=== PATIENT | male | born 1955 | race Caucasian/White ===

== ENCOUNTER → 2016-10-11 | Outpatient (CLI) | payer BC ==
[2016-10-11 15:01] LABS: FREE T4 (FREE THYROXINE) 1.16 ng/dL (0.93-1.71)
--- NOTE | 2016-10-13 22:03 | DI ---
CERVICAL SPINE SERIES, 10/11/2016 1:47 PM: Clinical History: Neck pain. Previous Exam: None at this facility. 3 routine upright views are submitted. The vertebral bodies are normal in height and size. There is s evere disc space narrowing from C3-4 through C7-T1 with anterior bony proliferative change at all lev els and posterior proliferative change at C4-5 and C5-6. There is loss of the usual cervical lordosis and this can either be secondary to patient positioning or because of the underlying neck pain. Post erior alignment and lateral masses are otherwise normal. There is degenerative arthritic change bilat erally in the C3-4 and C4-5 uncovertebral joints. C1 articulates normally with C2 and the occiput. Pr evertebral soft tissue planes are normal. Readin. Chronic disc space narrowing from C3-4 through C7-T1 with anterior and posterior bony proliferati ve change at C4-5 and C5-6. 2. Arthritic changes are present in the uncovertebral joints bilaterally at C3-4 and C4-5.
--- NOTE | 2016-10-13 22:26 | DI ---
LUMBAR SPINE SERIES, 10/11/2016 1:48 PM: Clinical History: Sciatica. Previous Exam: None at this facility. Upright AP and lateral and upright coned-down lateral views are submitted. The vertebral bodies are o f normal height and size. There is disc space narrowing at L1-2, L2-3, and L5-S1. There are minimal g rade 1 reverse spondylolisthesis changes at L1-2, L2-3, L4-5, and L5-S1. Degenerative arthritic salgado es are present bilaterally in the L4-5 and L5-S1 apophyseal joints. The pedicles and remaining glaciologist ior elements are unremarkable. Both SI joints are normal. Readin. Chronic disc space narrowing at L1-2, L2-3, and L5-S1 with degenerative arthritic changes in the apophyseal joints bilaterally between L4-5 and L5-S1. 2. Minimal grade 1 reverse spondylolisthesis changes at L1-2, L2-3, L4-5, and L5-S1.
== END ==
LOC: RAD 14:00
PROVIDERS: ATTEND Family Medicine
DX: M54.2 Cervicalgia (principal); M48.02 Spinal stenosis, cervical region; E03.9 Hypothyroidism, unspecified; R22.2 Localized swelling, mass and lump, trunk; M54.41 Lumbago with sciatica, right side; M48.06 Spinal stenosis, lumbar region; M43.16 Spondylolisthesis, lumbar region; M47.816 Spondylosis without myelopathy or radiculopathy, lumbar region
CPT/HCPCS: 36415; 72040; 72100; 84439; 84443